=== PATIENT | male | born 1960 | race Caucasian/White ===

== ENCOUNTER 2017-08-09 05:56 | Inpatient (IN) | payer OTHER ==
[~2017-08-09] VITALS: Ht 172.7 cm; Wt 163.3 kg
[~2017-08-09 05:56] MED LIST: AZACTAM IV; DICLOXACILLIN500 MG PO; DIOVAN160 M1; ELIQUIS2.5 MG PO; ERAXIS (WATER100 MG IV; FLUCONAZOLE200 MG PO; FOLIC ACID1 MG PO; INTEGRA PLUS C1 EACH PO; LEVAQUIN750 MG PO; LOSARTAN-HCTZ1 EAC2; LOSARTAN-HCTZ1 EAC2 PO; Neurin-Sl Tablet Sl SL; PRE PROTEIN 2030 ML PO; TOPROL XL25 M1 PO; TOPROL XL50 MG; TYGACIL50 MG/VIAL IV; VITAMIN B-1100 MG PO; [UNRECOGNIZED DRUG - OTHER]
== END 2017-10-08 20:33 | disposition home or self-care (01) | DRG 853 ==
LOC: ER 05:56 → MEDJ 12:18
PROVIDERS: Specialist
PROC: B246ZZZ Ultrasonography of Right and Left Heart (ICD-10-PCS; 2017-08-10)
PROC: 8E0ZXY6 Isolation (ICD-10-PCS; 2017-08-10)
PROC: 02HV33Z Insertion of Infusion Device into Superior Vena Cava, Percutaneous Approach (ICD-10-PCS; 2017-08-11)
PROC: 0JBM0ZZ Excision of Left Upper Leg Subcutaneous Tissue and Fascia, Open Approach (ICD-10-PCS; principal; 2017-08-12 22:15)
PROC: CW1NLZZ Planar Nuclear Medicine Imaging of Whole Body using Gallium 67 (Ga-67) (ICD-10-PCS; 2017-08-15)
PROC: 0JBM0ZZ Excision of Left Upper Leg Subcutaneous Tissue and Fascia, Open Approach (ICD-10-PCS; 2017-08-23)
PROC: BQ2SZZZ Computerized Tomography (CT Scan) of Left Lower Extremity (ICD-10-PCS; 2017-09-02)
PROC: 0JBM0ZZ Excision of Left Upper Leg Subcutaneous Tissue and Fascia, Open Approach (ICD-10-PCS; 2017-09-03)
PROC: 0D1L4Z4 Bypass Transverse Colon to Cutaneous, Percutaneous Endoscopic Approach (ICD-10-PCS; 2017-09-08)
PROC: 0QB10ZZ Excision of Sacrum, Open Approach (ICD-10-PCS; 2017-09-12)
PROC: BT43ZZZ Ultrasonography of Bilateral Kidneys (ICD-10-PCS; 2017-09-13)
PROC: CP1Z1ZZ Planar Nuclear Medicine Imaging of Musculoskeletal System, All using Technetium 99m (Tc-99m) (ICD-10-PCS; 2017-09-16)
PROC: CW1NLZZ Planar Nuclear Medicine Imaging of Whole Body using Gallium 67 (Ga-67) (ICD-10-PCS; 2017-09-19)
PROC: BW40ZZZ Ultrasonography of Abdomen (ICD-10-PCS; 2017-09-22)
PROC: BW40ZZZ Ultrasonography of Abdomen (ICD-10-PCS; 2017-09-22)
PROC: CF1C1ZZ Planar Nuclear Medicine Imaging of Hepatobiliary System, All using Technetium 99m (Tc-99m) (ICD-10-PCS; 2017-09-23)
PROC: 2W15X6Z Compression of Back using Pressure Dressing (ICD-10-PCS; 2017-09-24)
PROC: BW21Y0Z Computerized Tomography (CT Scan) of Abdomen and Pelvis using Other Contrast, Unenhanced and Enhanced (ICD-10-PCS; 2017-09-26)
PROC: 30233N1 Transfusion of Nonautologous Red Blood Cells into Peripheral Vein, Percutaneous Approach (ICD-10-PCS; 2017-09-27)
DX: A41.9 Sepsis, unspecified organism (principal); L89.154 Pressure ulcer of sacral region, stage 4; E66.2 Morbid (severe) obesity with alveolar hypoventilation; G82.21 Paraplegia, complete; L97.128 Non-pressure chronic ulcer of left thigh with other specified severity; N17.8 Other acute kidney failure; K80.10 Calculus of gallbladder with chronic cholecystitis without obstruction; M86.68 Other chronic osteomyelitis, other site; B37.49 Other urogenital candidiasis; L02.416 Cutaneous abscess of left lower limb; L89.320 Pressure ulcer of left buttock, unstageable; I10 Essential (primary) hypertension; I87.2 Venous insufficiency (chronic) (peripheral); D50.8 Other iron deficiency anemias; B95.61 Methicillin susceptible Staphylococcus aureus infection as the cause of diseases classified elsewhere; B95.1 Streptococcus, group B, as the cause of diseases classified elsewhere; N49.2 Inflammatory disorders of scrotum; B96.6 Bacteroides fragilis [B. fragilis] as the cause of diseases classified elsewhere; L29.8 Other pruritus; T36.8X5A Adverse effect of other systemic antibiotics, initial encounter; B96.20 Unspecified Escherichia coli [E. coli] as the cause of diseases classified elsewhere; B96.5 Pseudomonas (aeruginosa) (mallei) (pseudomallei) as the cause of diseases classified elsewhere; B95.2 Enterococcus as the cause of diseases classified elsewhere; B96.1 Klebsiella pneumoniae [K. pneumoniae] as the cause of diseases classified elsewhere; Z16.12 Extended spectrum beta lactamase (ESBL) resistance; B37.2 Candidiasis of skin and nail

== ENCOUNTER 2018-07-30 00:13 | Emergency (ER) | payer OTHER ==
[~2018-07-30] VITALS: Ht 172.7 cm; Wt 163.3 kg
== END 2018-07-30 16:04 | disposition home or self-care (01) ==
LOC: ER 00:13
DX: K94.09 Other complications of colostomy (principal); L89.150 Pressure ulcer of sacral region, unstageable

== ENCOUNTER 2018-11-01 06:14 | Inpatient (IN) | payer OTHER ==
[~2018-11-01] VITALS: Ht 172.7 cm; Wt 149.7 kg
--- NOTE | 2018-11-01 06:30 | NUR ---
SE RECIBE PACIENTE ALERTA Y ORIENTADO X3 CON LA QUEJA PRINCIPAL DE ULCERA EN EL GLUTEO ARIADNA DESDE HACE 2 MESES.
--- NOTE | 2018-11-01 09:33 | NUR ---
SE ROEINTA PTE SOBRE TRATAMEINTO. SE NICOLE MUETSRAS DE SNAGRE Y SE CANALIZA PERIFERALMENTE. PTE PENDIENTE A RE-EVALAUCION POR DRA. LEIJA.
--- NOTE | 2018-11-01 16:00 | NUR ---
SE RECIBE PACIENTE EN CAMA CON MEDIDAS DE SEGURIDAD. LUCE ALERTA CONSCIENTE Y ORIENTADO X3 EN COMPANIA DE FAMILIAR. BUEN PATRON RESPIRATORIO. SEMI SENTADO. IVFLUIDS PATENTES. ASPEN OCHOA AMARILLO INTENSO. PTE CON COLOSTOMIA. EN ESPERA DE SER EVALUDADO POR MEDICINA INTERNA.
--- NOTE | 2018-11-01 17:05 | NUR ---
PTE EVALUADO POR EL DR. SCHAFER QUIEN COLOCA ORDENES EN SISTEMA. SE REALIZA CAMBIO DE ASPEN EN COMPANIA DE MIS. [place]. SE INSERTA ASPEN BAJO MEDIDAS ESTERILES [facility] INTENSO. JOYCEE DOUGLASE NOTIFICADO A MR. [place] STYLIST EN TURNO.
== END 2018-11-13 18:14 | disposition home or self-care (01) | DRG 571 ==
LOC: ER 06:14 → MEDJ 20:24 → MEDI 20:24 → MEDJ 11-02 12:53
PROVIDERS: ADMIT Internal Medicine
PROC: 8E0ZXY6 Isolation (ICD-10-PCS; 2018-11-01)
PROC: 0JB70ZZ Excision of Back Subcutaneous Tissue and Fascia, Open Approach (ICD-10-PCS; principal; 2018-11-02)
PROC: 0JBR0ZZ Excision of Left Foot Subcutaneous Tissue and Fascia, Open Approach (ICD-10-PCS; 2018-11-02)
PROC: 0JBM0ZZ Excision of Left Upper Leg Subcutaneous Tissue and Fascia, Open Approach (ICD-10-PCS; 2018-11-02)
PROC: CP1Z1ZZ Planar Nuclear Medicine Imaging of Musculoskeletal System, All using Technetium 99m (Tc-99m) (ICD-10-PCS; 2018-11-02)
PROC: 02HV33Z Insertion of Infusion Device into Superior Vena Cava, Percutaneous Approach (ICD-10-PCS; 2018-11-02)
PROC: CW1NLZZ Planar Nuclear Medicine Imaging of Whole Body using Gallium 67 (Ga-67) (ICD-10-PCS; 2018-11-06)
DX: L89.154 Pressure ulcer of sacral region, stage 4 (principal); K94.03 Colostomy malfunction; N39.0 Urinary tract infection, site not specified; L89.893 Pressure ulcer of other site, stage 3; Z74.01 Bed confinement status; E66.01 Morbid (severe) obesity due to excess calories; I10 Essential (primary) hypertension; B96.29 Other Escherichia coli [E. coli] as the cause of diseases classified elsewhere; B96.7 Clostridium perfringens [C. perfringens] as the cause of diseases classified elsewhere; B95.4 Other streptococcus as the cause of diseases classified elsewhere; B96.89 Other specified bacterial agents as the cause of diseases classified elsewhere

== ENCOUNTER 2019-01-17 14:47 | Inpatient (IN) | payer OTHER ==
[~2019-01-17] VITALS: Ht 172.7 cm; Wt 154.2 kg
[2019-01-31] MEDS ORDERED: CEFTRIAXONE2 GM IV (12:39)
[2019-01-31] MEDS ORDERED: TOBRAMYCIN40 MG/1 ML IV (12:39)
[2019-01-31] MEDS ORDERED: FLUCONAZOL200 MG/101 IV (12:39)
[2019-01-31] MEDS ORDERED: CLOTRIMAZOLE15 GM TOP (12:40)
[2019-01-31] MEDS ORDERED: TOPROL XL25 M1 PO (12:40)
[2019-01-31] MEDS ORDERED: FAMOTIDINE20 MG PO (12:40)
== END 2019-01-31 14:33 | disposition home or self-care (01) | DRG 515 ==
LOC: ER 14:47 → SURH 19:08 → SEC-K 19:08 → SURH 22:23
PROVIDERS: ADMIT Internal Medicine
PROC: 0QB10ZZ Excision of Sacrum, Open Approach (ICD-10-PCS; principal; 2019-01-17)
PROC: 02HV33Z Insertion of Infusion Device into Superior Vena Cava, Percutaneous Approach (ICD-10-PCS; 2019-01-19)
DX: M86.18 Other acute osteomyelitis, other site (principal); L89.153 Pressure ulcer of sacral region, stage 3; G82.21 Paraplegia, complete; L97.828 Non-pressure chronic ulcer of other part of left lower leg with other specified severity; T85.79XA Infection and inflammatory reaction due to other internal prosthetic devices, implants and grafts, initial encounter; N39.0 Urinary tract infection, site not specified; B95.61 Methicillin susceptible Staphylococcus aureus infection as the cause of diseases classified elsewhere; B96.4 Proteus (mirabilis) (morganii) as the cause of diseases classified elsewhere; B96.29 Other Escherichia coli [E. coli] as the cause of diseases classified elsewhere; B96.6 Bacteroides fragilis [B. fragilis] as the cause of diseases classified elsewhere; B95.4 Other streptococcus as the cause of diseases classified elsewhere; B96.1 Klebsiella pneumoniae [K. pneumoniae] as the cause of diseases classified elsewhere; L89.220 Pressure ulcer of left hip, unstageable; D63.8 Anemia in other chronic diseases classified elsewhere; R15.9 Full incontinence of feces; I10 Essential (primary) hypertension; E66.01 Morbid (severe) obesity due to excess calories; Z74.01 Bed confinement status; Z93.3 Colostomy status; Z88.1 Allergy status to other antibiotic agents

== ENCOUNTER 2019-03-26 11:44 | Inpatient (IN) | payer OTHER ==
[~2019-03-26] VITALS: Ht 172.7 cm; Wt 154.2 kg
[~2019-03-26 11:44] MED LIST changes: +CEFTRIAXONE2 GM IV; +CLOTRIMAZOLE15 GM TOP; +FAMOTIDINE20 MG PO; +FLUCONAZOL200 MG/101 IV; +TOBRAMYCIN40 MG/1 ML IV
== END 2019-04-10 17:28 | DRG 539 ==
LOC: ER 11:44 → SURH 19:06 → MEDJ 03-27 18:54
PROVIDERS: ADMIT Internal Medicine
PROC: 0T9B70Z Drainage of Bladder with Drainage Device, Via Natural or Artificial Opening (ICD-10-PCS; 2019-03-26)
PROC: 8E0ZXY6 Isolation (ICD-10-PCS; 2019-03-26)
PROC: 02HV33Z Insertion of Infusion Device into Superior Vena Cava, Percutaneous Approach (ICD-10-PCS; 2019-03-27)
PROC: CP1D1ZZ Planar Nuclear Medicine Imaging of Left Lower Extremity using Technetium 99m (Tc-99m) (ICD-10-PCS; principal; 2019-03-30)
DX: M86.162 Other acute osteomyelitis, left tibia and fibula (principal); L89.153 Pressure ulcer of sacral region, stage 3; B37.1 Pulmonary candidiasis; L03.116 Cellulitis of left lower limb; L97.422 Non-pressure chronic ulcer of left heel and midfoot with fat layer exposed; I96 Gangrene, not elsewhere classified; Z68.45 Body mass index [BMI] 70 or greater, adult; B37.41 Candidal cystitis and urethritis; I10 Essential (primary) hypertension; I87.2 Venous insufficiency (chronic) (peripheral); B96.1 Klebsiella pneumoniae [K. pneumoniae] as the cause of diseases classified elsewhere; B95.2 Enterococcus as the cause of diseases classified elsewhere; B95.61 Methicillin susceptible Staphylococcus aureus infection as the cause of diseases classified elsewhere; D72.828 Other elevated white blood cell count; N39.8 Other specified disorders of urinary system; E66.01 Morbid (severe) obesity due to excess calories; Z74.01 Bed confinement status

== ENCOUNTER 2019-09-14 15:29 | Emergency (ER) | payer OTHER ==
[~2019-09-14] VITALS: Ht 152.4 cm; Wt 149.7 kg
[2019-09-14] MEDS ORDERED: AZACTAM2 GM (16:00)
[2019-09-14] MEDS ORDERED: AMIKACIN S1000 MG/4 (16:01)
== END 2019-09-14 21:37 | disposition home or self-care (01) ==
LOC: ER 15:29
DX: T78.49XA Other allergy, initial encounter (principal); R21 Rash and other nonspecific skin eruption

== ENCOUNTER 2019-12-12 12:23 | Inpatient (IN) | payer OTHER ==
[~2019-12-12] VITALS: Ht 172.7 cm; Wt 319.0 kg
[~2019-12-12 12:23] MED LIST changes: +AMIKACIN S1000 MG/4; +AZACTAM2 GM
[2019-12-18] MEDS ORDERED: AMOX-CLAV 875-1 EACH PO (09:35)
== END 2019-12-18 10:52 | disposition home or self-care (01) | DRG 689 ==
LOC: ER 12:23 → SEC-K 19:51 → SURH 19:51
PROVIDERS: ADMIT Internal Medicine
DX: N39.0 Urinary tract infection, site not specified (principal); L89.153 Pressure ulcer of sacral region, stage 3; G82.20 Paraplegia, unspecified; K80.10 Calculus of gallbladder with chronic cholecystitis without obstruction; L97.229 Non-pressure chronic ulcer of left calf with unspecified severity; M46.28 Osteomyelitis of vertebra, sacral and sacrococcygeal region; I10 Essential (primary) hypertension; Z74.01 Bed confinement status; D64.9 Anemia, unspecified; B96.20 Unspecified Escherichia coli [E. coli] as the cause of diseases classified elsewhere; R19.7 Diarrhea, unspecified; E66.01 Morbid (severe) obesity due to excess calories; Z93.3 Colostomy status

== ENCOUNTER → 2020-11-03 07:48 | Outpatient (CLI) | payer OTHER ==
[~2020-11-03 07:48] MED LIST changes: +AMOX-CLAV 875-1 EACH PO
== END | disposition home or self-care (01) ==
LOC: PPH VACUNA 07:48
PROVIDERS: ATTEND Emergency Medicine Pediatric Emergency Medicine
DX: Z23 Encounter for immunization (principal)

== ENCOUNTER 2021-02-16 12:00 | Inpatient (IN) | payer OTHER ==
[~2021-02-16] VITALS: Ht 172.7 cm; Wt 154.2 kg
== END 2021-02-25 16:45 | disposition home or self-care (01) | DRG 593 ==
LOC: ER 12:00 → MEDJ 20:03
PROVIDERS: ADMIT Internal Medicine; ATTEND Internal Medicine
PROC: 30233N1 Transfusion of Nonautologous Red Blood Cells into Peripheral Vein, Percutaneous Approach (ICD-10-PCS; principal; 2021-02-20)
PROC: 0JD73ZZ Extraction of Back Subcutaneous Tissue and Fascia, Percutaneous Approach (ICD-10-PCS; 2021-02-20)
DX: L89.154 Pressure ulcer of sacral region, stage 4 (principal); Z68.43 Body mass index [BMI] 50.0-59.9, adult; N39.0 Urinary tract infection, site not specified; G82.20 Paraplegia, unspecified; L89.512 Pressure ulcer of right ankle, stage 2; I10 Essential (primary) hypertension; E66.01 Morbid (severe) obesity due to excess calories; Z74.01 Bed confinement status; B96.20 Unspecified Escherichia coli [E. coli] as the cause of diseases classified elsewhere; B95.2 Enterococcus as the cause of diseases classified elsewhere; B95.61 Methicillin susceptible Staphylococcus aureus infection as the cause of diseases classified elsewhere; B96.89 Other specified bacterial agents as the cause of diseases classified elsewhere; L89.326 Pressure-induced deep tissue damage of left buttock; L89.316 Pressure-induced deep tissue damage of right buttock; D50.8 Other iron deficiency anemias; Z93.3 Colostomy status

== ENCOUNTER 2021-06-29 15:08 | Inpatient (IN) | payer OTHER ==
[~2021-06-29] VITALS: Ht 172.7 cm; Wt 154.2 kg
--- NOTE | 2021-06-29 15:33 | NUR ---
SE RECIBE PACIENTE MASCULINO ALERTA Y ORIENTADO EN LA VIGNESH ESFERAS EL SILVIO REFIERE PRESENTAR ULCERA EN EN GLUTEO RT DE 7 CM DE DIAMETRO COLOR MARILLA Y KYLE CON OLOR FETIDO. SE UBICA PACIENTE EN OBSERVACION.
--- NOTE | 2021-06-29 17:01 | NUR ---
EVALUA PTE. SE EDUCA A PTE SOBRE TX MEDICO. PTE REFIERE COMPRENDER. SE REALIZAN MUESTRAS DE LABORATORIO BAJO MEDIDAS ASEPTICAS. SE ADMINISTRAN MEDICAMENTOS MONY ORDEN MEDICA. PTE MANEJADO POR .
--- NOTE | 2021-06-29 23:38 | NUR ---
PACIENTE ALERTA Y ORIENTADO X3. EN POSICION SEMI-SENTADO EN LIZZ CON BARANDAS ELEVADAS. RECIBIENDO 0.9% NSS DE 1,000ML BAJANDO A 120ML/HR. PACIENTE CONSULTADO CON DR. EVERTON LINCOLN. SE MANTIENE BAJO OBSERVACION POR CAMBIOS SIGNIFICATIVOS.
--- NOTE | 2021-06-30 06:25 | NUR ---
PACIENTE ELIMINO EN EL TURNO 300ML DE ORINA COLOR AMARILLO INTENSO POR SONDA URINARIA.
--- NOTE | 2021-06-30 07:22 | NUR ---
SE RECIBE PACIENTE DEL TURNO ANTERIOR ALERTA Y ORIENTADO X3, EN LIZZ CON BARANDAS ELEVADAS POR PRECAUSION, CANALIZADO CON 0.9 NSS PATENTE Y TRAM DE EDEMA CON ANGIO # 20. SE ORIENTA A PACIENTE SOBRE CONTINUIDAD DE TX MEDICO Y EL MISMO REFIERE ENTENDER.
[2021-07-02] MEDS ORDERED: [UNRECOGNIZED DRUG - OTHER] (14:46)
[2021-07-02] MEDS ORDERED: METOPROLOL TART50 MG (14:47)
[2021-07-02] MEDS ORDERED: FERROUS SULFAT325 M2 (14:47)
[2021-07-19] MEDS ORDERED: CLOTRIMAZOLE45 G1 TOP (14:43)
[2021-07-19] MEDS ORDERED: B Complex CAPSULE PO (14:43)
[2021-07-19] MEDS ORDERED: INTEGRA F CAPS1 EACH PO (14:43)
[2021-07-19] MEDS ORDERED: Neurin-Sl Tablet Sl SL (14:43)
== END 2021-07-19 16:54 | disposition home health service (06) | DRG 673 ==
LOC: ER 15:08 → MEDI 06-30 12:51
PROVIDERS: ADMIT Internal Medicine; ATTEND Internal Medicine
PROC: 8E0ZXY6 Isolation (ICD-10-PCS; 2021-06-30)
PROC: 0T9B70Z Drainage of Bladder with Drainage Device, Via Natural or Artificial Opening (ICD-10-PCS; 2021-06-30)
PROC: 4A12X4Z Monitoring of Cardiac Electrical Activity, External Approach (ICD-10-PCS; 2021-06-30)
PROC: 0JB70ZZ Excision of Back Subcutaneous Tissue and Fascia, Open Approach (ICD-10-PCS; principal; 2021-07-08)
PROC: 02HV33Z Insertion of Infusion Device into Superior Vena Cava, Percutaneous Approach (ICD-10-PCS; 2021-07-10)
PROC: BV44ZZZ Ultrasonography of Scrotum (ICD-10-PCS; 2021-07-11)
PROC: C51BYZZ Planar Nuclear Medicine Imaging of Right Lower Extremity Veins using Other Radionuclide (ICD-10-PCS; 2021-07-11)
DX: N39.0 Urinary tract infection, site not specified (principal); L89.313 Pressure ulcer of right buttock, stage 3; L89.153 Pressure ulcer of sacral region, stage 3; L89.314 Pressure ulcer of right buttock, stage 4; D62 Acute posthemorrhagic anemia; N43.1 Infected hydrocele; G82.20 Paraplegia, unspecified; I96 Gangrene, not elsewhere classified; B96.29 Other Escherichia coli [E. coli] as the cause of diseases classified elsewhere; B96.6 Bacteroides fragilis [B. fragilis] as the cause of diseases classified elsewhere; B96.7 Clostridium perfringens [C. perfringens] as the cause of diseases classified elsewhere; B95.2 Enterococcus as the cause of diseases classified elsewhere; B95.7 Other staphylococcus as the cause of diseases classified elsewhere; I10 Essential (primary) hypertension; D50.8 Other iron deficiency anemias; E66.01 Morbid (severe) obesity due to excess calories; Z20.822 Contact with and (suspected) exposure to COVID-19; Z74.01 Bed confinement status

== ENCOUNTER 2021-07-27 13:10 | Outpatient (CLI) | payer OTHER ==
[~2021-07-27 13:10] MED LIST changes: +B Complex CAPSULE PO; +CLOTRIMAZOLE45 G1 TOP; +FERROUS SULFAT325 M2; +INTEGRA F CAPS1 EACH PO; +METOPROLOL TART50 MG; +[UNRECOGNIZED DRUG - OTHER]
== END 2021-07-27 13:30 | disposition home or self-care (01) ==
LOC: PPH VACUNA 13:10
PROVIDERS: ATTEND Emergency Medicine Pediatric Emergency Medicine
DX: Z23 Encounter for immunization (principal)

== ENCOUNTER 2021-11-01 13:28 | Inpatient (IN) | payer OTHER ==
[~2021-11-01] VITALS: Ht 175.3 cm; Wt 149.7 kg
[2021-11-02] MEDS ORDERED: VITAMIN B COMP1 EAC1 (10:22)
[2021-11-02] MEDS ORDERED: ABANEU-SL TABL1 EACH (10:23)
[2021-11-20] MEDS ORDERED: INTEGRA PLUS C1 EACH PO (13:07)
[2021-11-20] MEDS ORDERED: B Complex CAPSULE PO (13:07)
[2021-11-20] MEDS ORDERED: TOPROL XL50 M1 PO (13:07)
[2021-11-20] MEDS ORDERED: PROTEINEX-18 LI30 ML PO (13:07)
[2021-11-20] MEDS ORDERED: Neurin-Sl Tablet Sl SL (13:07)
[2021-11-20] MEDS ORDERED: ATACAND16 MG PO (13:07)
== END 2021-11-20 13:31 | disposition home or self-care (01) | DRG 580 ==
LOC: ER 13:28 → SURH 18:25 → SEC-K 18:25 → SURH 20:35 → MEDJ 11-04 13:38
PROVIDERS: ADMIT Internal Medicine; ATTEND Internal Medicine
PROC: 0QB73ZX Excision of Left Upper Femur, Percutaneous Approach, Diagnostic (ICD-10-PCS; principal; 2021-11-03)
PROC: 02HV33Z Insertion of Infusion Device into Superior Vena Cava, Percutaneous Approach (ICD-10-PCS; 2021-11-03)
DX: L89.329 Pressure ulcer of left buttock, unspecified stage (principal); N39.0 Urinary tract infection, site not specified; L89.319 Pressure ulcer of right buttock, unspecified stage; L08.9 Local infection of the skin and subcutaneous tissue, unspecified; E83.42 Hypomagnesemia; B96.20 Unspecified Escherichia coli [E. coli] as the cause of diseases classified elsewhere; B95.2 Enterococcus as the cause of diseases classified elsewhere; B96.89 Other specified bacterial agents as the cause of diseases classified elsewhere; Z74.01 Bed confinement status; I10 Essential (primary) hypertension; Z20.822 Contact with and (suspected) exposure to COVID-19; E66.01 Morbid (severe) obesity due to excess calories; I73.89 Other specified peripheral vascular diseases